=== PATIENT | male | born 1980 | race Caucasian/White ===

== ENCOUNTER 2022-10-26 08:39 | Emergency (ER) | payer SELFPAY | END 2022-10-26 11:00 | disposition home or self-care (01) | LOC: ERS 08:39 | DX: J10.1 Influenza due to other identified influenza virus with other respiratory manifestations (principal); I10 Essential (primary) hypertension; Z20.822 Contact with and (suspected) exposure to COVID-19 | CPT/HCPCS: 71045; 87804; U0003; U0005 ==

== ENCOUNTER 2024-02-08 14:10 | Emergency (ER) | payer OTHER, SELFPAY | END 2024-02-08 15:30 | disposition home or self-care (01) | LOC: ERS 14:10 | DX: G51.0 Bell's palsy (principal); I10 Essential (primary) hypertension | CPT/HCPCS: 99283 ==